=== PATIENT | male | born 1995 | race American Indian/Alaskan Native ===

== ENCOUNTER 2021-03-14 18:35 | Emergency (ER) | payer BC, SELFPAY ==
[2021-03-14 20:50] VITALS: BP 151/82
--- NOTE | 2021-03-14 20:51 | Event Note ---
ED Screening Note ED Screening Note: Patient is presenting with cough, shortness of breath, fever, chills, body aches, fatigue that began 2 days ago He has not been vaccinated for COVID-19 He denies any known sick contacts or recent travel He has not been tested for COVID-19 since becoming ill No past medical history No allergies to medicines He is a previous smoker Oxygen on room air is between 90 to 94%, will place patient on oxygen Patient has fever of 100.[address] Tylenol This initial assessment/diagnostic orders/clinical plan/treatment(s) is/are subject to change based on patients health status, clinical progression and re- assessment by fellow clinical providers in the ED. Further treatment and workup at subsequent clinical providers discretion. Patient/guardian urged not to elope from the ED as their condition may be serious if not clinically assessed and managed. Initial orders include: Labs, x-ray
[2021-03-14] MEDS ORDERED: ACETAMINOPHEN 325 MG TAB PO ONE (21:00)
[2021-03-14 21:19] LABS: Basophils % (Auto) 0.3 % (0.0-1.8); Hematocrit 43.2 % (35.5-45.6); Hemoglobin 14.3 gm/dl (11.8-15.2); Lymphocytes # (Auto) 1.2 K/mm3 (1.2-5.4); Lymphocytes % (Auto) 19.4 % (13.4-35.0); Mean Corpuscular HGB Conc 33 % (32-34); Mean Corpuscular Volume 80 fl (84-94); Monocytes # (Auto) 0.8 K/mm3 (0.0-0.8); Monocytes % (Auto) 12.8 % (0.0-7.3); Platelet Count 185 K/mm3 (140-440); Red Blood Count 5.41 M/mm3 (3.65-5.03); Red Cell Distribution Width 15.1 % (13.2-15.2)
--- NOTE | 2021-03-14 21:27 | XRay Report ---
CHEST 2 VIEWS INDICATION: cough, SOB, fever. COMPARISON: None. FINDINGS: Support devices: None. Heart: Within normal limits. Lungs/Pleura: Mild increased markings left base medially. No significant pleural effusion. IMPRESSION: Suspect left basilar pneumonia. Signer Name: James Fermin MD Signed: 03/14/2021 9:23 PM Workstation Name: [id number]
[2021-03-14] MEDS ORDERED: cefTRIAXone/NS 1 GM/50 ML 1 GM/50 ML BAG IV ONE (21:35)
[2021-03-14] MEDS ORDERED: AZITHROMYCIN/NS 500 MG/250 ML 500 MG/250 ML BAG IV ONE (21:35)
[2021-03-14 21:39] LABS: Alanine Aminotransferase 47 units/L (7-56); Albumin 4.4 g/dL (3.9-5); BUN/Creatinine Ratio 8; Blood Urea Nitrogen 11 mg/dL (9-20); Calcium 9.4 mg/dL (8.4-10.2); Hemolysis Index 0
--- NOTE | 2021-03-14 23:06 | Emergency Department Report ---
ED General Adult HPI - General Chief complaint: Fever Stated complaint: feeling sick Time Seen by Provider: 03/14/21 20:49 Source: patient Mode of arrival: Ambulatory Limitations: No Limitations - History of Present Illness Initial comments: 25-year-old male patient with prior history of tobacco use presents to the emergency department with complaints of fever, reductive cough, and shortness of breath for 3 days. No known sick contacts. No current steroid or antibiotic use. No recent travel. Patient did not receive his COVID-19 vaccination series . Patient has not been tested for COVID-19 since his symptoms began. He has been taking DayQuil with limited relief. He has no known history of pre- existing lung disease. Denies nausea, vomiting, diarrhea, wheezing, hemoptysis, syncope. Denies all other complaints at this time. Severity scale (0 -10): 3 - Related Data Previous Rx's Medication Instructions Recorded Last Taken Type Amoxicillin [Trimox CAP] 1,000 mg PO Q8H 7 Days capsule 03/15/21 Unknown Rx Azithromycin [Zithromax TAB] 250 mg PO QDAY 5 Days tablet 03/15/21 Unknown Rx Allergies Allergy/AdvReac Type Severity Reaction Status Date / Time No Known Allergies Allergy Unverified 03/14/21 20:52 ED Review of Systems ROS: Stated complaint: feeling sick Other details as noted in HPI Other: GENERAL: Positive for fever. ENT: Negative for ear pain, difficulty hearing, sore throat, nasal congestion, epistaxis. CARDIOVASCULAR: Negative for chest pain, palpitations, lower extremity swelling. PULMONARY: Positive for cough and shortness of breath GASTROINTESTINAL: Negative for abdominal pain, nausea, vomiting, diarrhea, constipation. MUSCULOSKELETAL: Negative for joint pain, joint swelling, myalgias, back pain, neck pain. NEUROLOGICAL: Negative for headache, seizure, syncope, paresthesias, weakness. INTEGUMENTARY: Negative for erythema, rash, diaphoresis, laceration, ecchymosis. HEMATOLOGICAL: Negative for hemoptysis, hematemesis, hematochezia, hematuria. PSYCHIATRIC: Negative for hallucinations, suicidal ideation, homicidal ideation, anxiety, depression. ED Past Medical Hx - Past Medical History Previous Medical History?: No - Surgical History Past Surgical History?: No - Medications Home Medications: Home Medications Medication Instructions Recorded Confirmed Last Taken Type Amoxicillin [Trimox CAP] 1,000 mg PO Q8H 7 Days capsule 03/15/21 Unknown Rx Azithromycin [Zithromax TAB] 250 mg PO QDAY 5 Days tablet 03/15/21 Unknown Rx ED Physical Exam - General Limitations: No Limitations - Other Other exam information: General: Awake and alert. No acute distress. Head: Atraumatic, normocephalic. Eyes: EOMI. Pupils are equal and round. Normal sclera and conjunctiva. ENT: Oral mucosa is moist. Normal pharyngeal exam. Neck: Supple. No lymphadenopathy. Pulmonary: No respiratory distress, 0.5 liters of supplemental oxygen per nasal cannula in place. Clear to auscultation bilaterally. Cardiac: Tachycardic. Pulses are palpable and equal bilaterally. No lower extremity cyanosis or edema. Skin: Warm and dry. No rashes. Abdomen: Soft, non-tender, non-protuberant. No guarding, rigidity, or rebound. Bowel sounds are normal. No organomegaly or masses noted. Back: Normal alignment. No CVA tenderness. Extremities: Symmetrical. Full range of motion intact. Neurological: Alert and oriented, appropriately interactive, no focal deficits. Psych: Cooperative. Appropriate mood and affect. Speech is evenly metered. Thoughts are logically construed. ED Course Vital Signs 03/14/21 20:48 Temperature 100.7 F H Pulse Rate 102 H Respiratory 18 Rate Blood Pressure 151/82 O2 Sat by Pulse 92 Oximetry ED Medical Decision Making - Lab Data Result diagrams: 03/14/21 20:57 03/14/21 20:57 - Radiology Data [facility] [address] [place] [address] XRay Report Signed Patient: EVER SANTAMARIA MR#: [id number] 3 : 1995 Acct:[id number] Age/Sex: 25 / M ADM Date: 03/14/21 Loc: ED Attending Dr: Ordering Physician: ANGLE RETANA Date of Service: 03/14/21 Procedure(s): XR chest routine 2V Accession Number(s): [id number] cc: ANGLE RETANA Fluoro Time In Minutes: CHEST 2 VIEWS INDICATION: cough, SOB, fever. COMPARISON: None. FINDINGS: Support devices: None. Heart: Within normal limits. Lungs/Pleura: Mild increased markings left base medially. No significant pleural effusion. IMPRESSION: Suspect left basilar pneumonia. Signer Name: James Fermin MD Signed: 03/14/2021 9:23 PM Workstation Name: [id number] Transcribed By: ES Dictated By: James Fermin MD Electronically Authenticated By: James Fermin MD Signed Date/Time: 03/14/212122 DD/ 21 TD/TT: - Medical Decision Making Differential diagnosis including but not limited to: sepsis, pneumonia, pleural effusion, pneumothorax, influenza, pertussis, viral upper respiratory infection On reevaluation, patient is stable and symptoms have improved. No hypoxia, no respiratory distress. Tachycardia resolved. Repeat HR 92 bpm. Patient is am bulatory in the emergency department without assistance and without oxygen desaturation. Chest x-ray shows evidence of left basilar pneumonia. Treated with IV Rocephin and IV Zithromax per current IDSA community-acquired pneumonia guidelines. Labs are otherwise unremarkable. Patient tested positive for COVID-19 at an outside facility. He is tolerating oral intake without difficulty. He has no known history of pre-existing cardiopulmonary disease. There is no clinical indication for further diagnostic work-up on an emergent basis at this time. He is an appropriate candidate for outpatient management based on PSI score and clinical improvement. Patient will be discharged home with antibiotics for community-acquired pneumonia as well as instructions for symptomatic treatment. Patient expressed understanding and is agreeable to plan of care. Disease transmission precautions discussed. Strict return precautions provided. Repeat exam is unremarkable and benign. History, exam, diagnostic testing, and current condition do not suggest worrisome pathology to warrant further testing, continued ED treatment, admission, or surgical evaluation at this point. Given the low probability of a significant medical illness, it would be more likely to result in harm than benefit to perform further testing at this stage. Discussed findings, presumptive diagnosis, need for follow-up and specific signs/symptoms that should prompt immediate return to the emergency department. Instructions were explained in detail to the patient in addition to giving written discharge information. Patient expressed understanding and was given the opportunity to ask questions, all of which were satisfactorily answered prior to discharge home. Critical care attestation.: If time is entered above; I have spent that time in minutes in the direct care of this critically ill patient, excluding procedure time. ED Disposition Clinical Impression: COVID-19 Community acquired pneumonia Qualifiers: Laterality: left Lung location: lower lobe of lung Qualified Code(s): J18.9 - Pneumonia, unspecified organism Disposition: DC-01 TO HOME OR SELFCARE Is pt being admited?: No Does the pt Need Aspirin: No Condition: Stable Instructions: COVID-19, Community-Acquired Pneumonia, Adult, [id number], Bacterial Pneumonia (ED) Additional Instructions: Take Tylenol every 4 hours and Motrin every 8 hours as needed for pain/fever. Take Amoxicillin and Azithromycin with food as directed. Use [id number] cough/cold medications as needed for symptomatic relief. Rest. Drink plenty of fluids. Wash hands frequently to prevent disease transmission. Do not share food or drinks with others. Please adhere to CDC guidelines regarding isolation precautions. Follow-up with your primary care provider this week. Call today to schedule an appointment. See referral information below. Return to the emergency department immediately for new or worsening symptoms. Prescriptions: Amoxicillin [Trimox CAP] 1,000 mg PO Q8H 7 Days capsule Azithromycin [Zithromax TAB] 250 mg PO QDAY 5 Days tablet Referrals: RAFFY CUBA MD [Staff Physician] - 3-5 Days [facility] [Provider Group] - 3-5 Days Forms: Work/School Release Form(ED) Time of Disposition: 03:07
== END 2021-03-15 03:25 | disposition home or self-care (01) ==
LOC: ED 18:35
DX: U07.1 COVID-19 (principal); J12.82 Pneumonia due to coronavirus disease 2019
CPT/HCPCS: 36415; 71046; 80053; 82140; 85025; 96365; 96367; 99283; J0456; J0696